=== PATIENT | male | born 1990 | race Two or more races ===

== ENCOUNTER 2023-09-08 18:07 | Emergency (ER) | payer OTHER ==
[2023-09-08 18:25] VITALS: BP 135/62; PULSE 68; RESP 19; TEMP 98; BMI 25.1
[2023-09-08] MEDS ORDERED: CYCLOBENZAPRINE HCL 10 MG TABLET (FP) PO ONE (19:23)
[2023-09-08] MEDS ORDERED: IBUPROFEN 600 MG TABLET (FP) PO ONE (19:23)
[2023-09-08] MEDS ORDERED: ACETAMINOPHEN 500 MG TABLET (FP) PO ONE (19:23)
[2023-09-08] MEDS ORDERED: METHOCARBAMOL 500 MG TABLET ONE (19:24)
== END 2023-09-08 21:35 | disposition home or self-care (01) ==
LOC: JER 18:07 → JERFT 18:07
DX: R51.9 Headache, unspecified (principal); M79.10 Myalgia, unspecified site; M25.511 Pain in right shoulder; M25.561 Pain in right knee; M25.562 Pain in left knee; V49.40XA Driver injured in collision with unspecified motor vehicles in traffic accident, initial encounter; Y92.410 Unspecified street and highway as the place of occurrence of the external cause
CPT/HCPCS: 70450-TC; 73030-TC-RT-FY; 73560-TC-LT-FY; 73560-TC-RT-FY; 99284-25